=== PATIENT | female | born 1955 | race African-American/Black ===

== ENCOUNTER 2016-02-16 01:34 | Emergency (ER) | payer OTHER ==
[~2016-02-16 01:34] MED LIST: AMLO10TA2 PO; GLIM4TAB2 PO; SIMV20TA6 PO; [UNRECOGNIZED DRUG - REMARK]
== END 2016-02-16 03:06 | disposition left against medical advice (07) ==
LOC: ER 01:36
DX: Z53.21 Procedure and treatment not carried out due to patient leaving prior to being seen by health care provider (principal)

== ENCOUNTER 2016-02-16 12:45 | Emergency (ER) | payer OTHER ==
[~2016-02-16] VITALS: Ht 182.9 cm; Wt 81.6 kg
[2016-02-16 12:57] VITALS: BP 152/100
== END 2016-02-16 13:26 | disposition home or self-care (01) ==
LOC: ER 12:50
DX: G47.00 Insomnia, unspecified (principal); L30.9 Dermatitis, unspecified; I10 Essential (primary) hypertension; E11.9 Type 2 diabetes mellitus without complications; Z98.890 Other specified postprocedural states
CPT/HCPCS: 99283; A4606; Z7610

== ENCOUNTER 2016-02-25 21:32 | Emergency (ER) | payer OTHER ==
[~2016-02-25] VITALS: Ht 175.3 cm; Wt 75.7 kg
[2016-02-25 23:14] VITALS: BP 138/89
== END 2016-02-25 22:45 | disposition home or self-care (01) ==
LOC: ER 21:38
DX: S09.90XA Unspecified injury of head, initial encounter (principal); R51 Headache; M54.5 Low back pain; I10 Essential (primary) hypertension; E11.9 Type 2 diabetes mellitus without complications; Z98.890 Other specified postprocedural states; V49.40XA Driver injured in collision with unspecified motor vehicles in traffic accident, initial encounter; Y93.89 Activity, other specified; Y92.413 State road as the place of occurrence of the external cause; Y99.8 Other external cause status
CPT/HCPCS: 70450-TC; 72100-TC; A4606; Z7610

== ENCOUNTER 2016-04-01 19:23 | Emergency (ER) | payer OTHER, BC ==
[~2016-04-01] VITALS: Ht 175.3 cm; Wt 77.1 kg
[2016-04-01] MEDS ORDERED: METOCLOPRAMIDE HCL 10 MG/10 ML UDC PO ONE (20:00)
[2016-04-01] MEDS ORDERED: ACETAMINOPHEN ES 500 MG TABLET PO ONE (20:00)
[2016-04-01] MEDS ORDERED: KETOROLAC TROMETHAMINE INJ 60 MG/2 ML VIAL IM ONE (20:00)
[2016-04-01] MEDS ORDERED: METOCLOPRAMIDE HCL 10 MG TABLET ONE (20:24)
[2016-04-01] MEDS ORDERED: ACETAMINOPHEN ES 500 MG TABLET ONE (20:24)
[2016-04-01] MEDS ORDERED: KETOROLAC TROMETHAMINE INJ 30 MG/ML VIAL ONE (20:25)
[2016-04-01 20:58] VITALS: BP 156/64
== END 2016-04-01 20:58 | disposition home or self-care (01) ==
LOC: ER 19:28
DX: R51 Headache (principal); I10 Essential (primary) hypertension
CPT/HCPCS: A4606; J1885; J8597; Z7610

== ENCOUNTER 2016-09-03 21:52 | Emergency (ER) | payer BC, OTHER ==
[~2016-09-03] VITALS: Ht 175.3 cm; Wt 76.2 kg
--- NOTE | 2016-09-03 22:05 | NUR ---
TO BED 2 AMBULATORY C/O ABDOMINAL PAIN X1 WEEK WITH DIARRHEA, WORSE AFTER EATING. PT AAOX4 NO ACUTE DISTRESS NOTED, RESP EVEN AND UNLABORED. PENDING ER MD HACKETT.
--- NOTE | 2016-09-03 22:10 | NUR ---
URINE SAMPLE COLLECTED AND SENT TO LAB.
[2016-09-03] MEDS ORDERED: IV NS 0.9% 1,000 ML BAG IV ONE (22:30)
[2016-09-03 22:40] LABS: BASOPHILS % (AUTO) 0.2 % (0.0-2.0); EOSINOPHILS % (AUTO) 0.4 % (0.0-6.0); HEMATOCRIT 37 % (33-45); HEMOGLOBIN 12.5 g/dL (11.5-14.8); LYMPHOCYTES # (AUTO) 1.8 /CMM (0.8-4.8); LYMPHOCYTES % (AUTO) 24.5 % (20.0-44.0); MEAN CORPUSCULAR HEMOGLOBIN 29 PG (26.0-33.0); MEAN CORPUSCULAR HGB CONC 34 g/dl (31.0-36.0); MEAN CORPUSCULAR VOLUME 85 fL (82-100); MONOCYTES # (AUTO) 0.4 /CMM (0.1-1.30); NEUTROPHILS # (AUTO) 5.1 /CMM (1.8-8.9); NEUTROPHILS % (AUTO) 68.9 % (43.0-81.0); PLATELET COUNT (AUTO) 255 /CMM (150-450); RDW COEFFICIENT OF VARIATION 14.4 (11.5-15.0); RED BLOOD CELL COUNT(AUTO) 4.36 MIL/uL (4.0-5.2); WHITE BLOOD COUNT (AUTO) 7.4 K/uL (4.3-11.0)
[2016-09-03 22:49] LABS: CALCIUM, SERUM 8.5 mg/dL (8.5-10.1); CARBON DIOXIDE 27 mmol/L (21-32); CHLORIDE 106 mmol/L (98-107); CREATININE 1.2 mg/dL (0.6-1.3); GLUCOSE 254 mg/dL (74-106); POTASSIUM 3.3 mmol/L (3.5-5.1); SODIUM SERUM 144 mmol/L (136-145); UREA NITROGEN, BLOOD 17 mg/dL (7-18)
[2016-09-03 22:51] LABS: INR 0.97 (0.87-1.13); PROTHROMBIN TIME 10.4 SECS (9.5-12.7)
[2016-09-03 22:53] LABS: APPEARANCE,URINE SL CLOUDY (CLEAR); BILIRUBIN,URINE NEGATIVE (NEGATIVE); BLOOD, URINE TRACE-INTA Ery/uL (NEGATIVE); COLOR,URINE YELLOW (YELLOW); KETONES,URINE NEGATIVE (NEGATIVE); LEUKOCYTE ESTERASE ,URINE 1+ (NEGATIVE); NITRITE, URINE NEGATIVE (NEGATIVE); PH,URINE 5.5 (5.0-8.0); PROTEIN,URINE TRACE mg/dl (NEGATIVE); UGLUCOSE 1+ mg/dL (NEGATIVE); UROBILINOGEN,URINE 0.2 EU/dL (0.2)
--- NOTE | 2016-09-03 22:56 | NUR ---
PT BACK FROM RADIOLOGY. PENDING CT ABD/PELVIS RESULT.
[2016-09-03 22:57] LABS: ALANINE AMINOTRANSFERASE 42 U/L (12-78); ALBUMIN 3.8 g/dL (3.4-5.0); ALKALINE PHOSPHATASE 73 U/L (46-116); ASPARTATE AMINOTRANSFERASE 22 U/L (15-37); BILIRUBIN,DIRECT 0.1 mg/dL (0.0-0.2); BILIRUBIN,TOTAL 0.3 mg/dL (0.2-1.0); LIPASE 210 U/L (73-393); TOTAL PROTEIN, SERUM 7.4 g/dL (6.4-8.2); TROPONIN I < 0.017 ng/mL (0.00-0.056)
[2016-09-03 23:02] LABS: BACTERIA,URINE 1+ /HPF (None Seen); RBC,URINE 0-2 /HPF (0-2); SQUAMOUS EPITHELIAL CELL,UR Moderate /HPF (None Seen); WBC,URINE 20-25 /HPF (0-3)
--- NOTE | 2016-09-03 23:33 | NUR ---
CT RESULT RECEIVED. ER AWARE.
--- NOTE | 2016-09-04 00:15 | NUR ---
UTS TECH AT BEDSIDE.
--- NOTE | 2016-09-04 00:49 | NUR ---
PT AMBULATROY TO THE BATHROOM WITH STEADY GAIT NOTED. PT DENIES PAIN OR DISCOMFORT AT THIS TIME.
--- NOTE | 2016-09-04 01:49 | NUR ---
IV removed. Catheter intact and site benign. Pressure and 4x4 applied to site. No bleeding noted. Patient discharged to home in stable condition. Written and verbal after care instructions given. Patient verbalizes understanding of instruction. ambulatory with a steady gait noted. pt aaox4 no acute distress noted, resp even and unlabored.
[2016-09-04 01:50] VITALS: BP 143/84
== END 2016-09-04 01:50 | disposition home or self-care (01) ==
LOC: ER 21:54
DX: N39.0 Urinary tract infection, site not specified (principal); E11.9 Type 2 diabetes mellitus without complications; R19.7 Diarrhea, unspecified; I10 Essential (primary) hypertension
CPT/HCPCS: 36415; 72128-TC; 76856-TC; 80048-TC; 80076-TC; 81000-TC; 83690-TC; 84484-TC; 85025-TC; 85730-TC; 87086-TC; A4606; J7030; Z7610

== ENCOUNTER 2017-08-09 22:59 | Emergency (ER) | payer OTHER ==
[~2017-08-09] VITALS: Ht 175.3 cm; Wt 76.2 kg
[2017-08-09 23:10] VITALS: BP 157/77
== END 2017-08-10 01:20 | disposition home or self-care (01) ==
LOC: ER 23:05
DX: R59.1 Generalized enlarged lymph nodes (principal); J40 Bronchitis, not specified as acute or chronic; E11.65 Type 2 diabetes mellitus with hyperglycemia; I10 Essential (primary) hypertension
CPT/HCPCS: 71045-TC; 82962-TC; A4606; Z7610

== ENCOUNTER 2017-09-13 14:20 | Emergency (ER) | payer OTHER ==
[~2017-09-13] VITALS: Ht 175.3 cm; Wt 76.2 kg
[2017-09-13 15:30] LABS: BASOPHILS # (AUTO) 0.1 /CMM (0.0-0.2); BASOPHILS % (AUTO) 1.1 % (0.0-2.0); EOSINOPHILS % (AUTO) 1.3 % (0.0-6.0); HEMATOCRIT 41 % (33-45); HEMOGLOBIN 13.4 g/dL (11.5-14.8); LYMPHOCYTES # (AUTO) 2.2 /CMM (0.8-4.8); MEAN CORPUSCULAR HEMOGLOBIN 29 PG (26.0-33.0); MEAN CORPUSCULAR HGB CONC 33 g/dl (31.0-36.0); MEAN CORPUSCULAR VOLUME 87 fL (82-100); MONOCYTES # (AUTO) 0.4 /CMM (0.1-1.30); MONOCYTES % (AUTO) 6.3 % (2.0-12.0); NEUTROPHILS # (AUTO) 2.8 /CMM (1.8-8.9); NEUTROPHILS % (AUTO) 52.3 % (43.0-81.0); PLATELET COUNT (AUTO) 287 /CMM (150-450); RDW COEFFICIENT OF VARIATION 12.7 (11.5-15.0); RED BLOOD CELL COUNT(AUTO) 4.67 MIL/uL (4.0-5.2); WHITE BLOOD COUNT (AUTO) 5.6 K/uL (4.3-11.0)
[2017-09-13 15:37] LABS: CALCIUM, SERUM 9.1 mg/dL (8.5-10.1); CREATININE 1.1 mg/dL (0.6-1.3); POTASSIUM 3.6 mmol/L (3.5-5.1)
--- NOTE | 2017-09-13 15:40 | NUR ---
RECIEVED PT TO ED BED 10, A/OX4 W/ C/O ABD PAIN X 1 MONTH, WORSENING WITH EATING. +DIARRHEA. NAD VSS RR EVEN AND UNLABORED. PT WAS SEEN AND EVALUATED BY ER MD
[2017-09-13 15:43] LABS: ALBUMIN 3.7 g/dL (3.4-5.0); BILIRUBIN,DIRECT 0.1 mg/dL (0.0-0.2); BILIRUBIN,TOTAL 0.4 mg/dL (0.2-1.0); TOTAL PROTEIN, SERUM 7.7 g/dL (6.4-8.2)
[2017-09-13 16:36] LABS: APPEARANCE,URINE Clear (CLEAR); BILIRUBIN,URINE Negative (NEGATIVE); BLOOD, URINE Negative Ery/uL (NEGATIVE); COLOR,URINE Yellow (YELLOW); KETONES,URINE Negative (NEGATIVE); LEUKOCYTE ESTERASE ,URINE Negative (NEGATIVE); NITRITE, URINE Negative (NEGATIVE); PH,URINE 5.5 (5.0-8.0); PROTEIN,URINE Negative (NEGATIVE); UGLUCOSE Negative (NEGATIVE); UROBILINOGEN,URINE 0.2 EU/dL (0.2)
[2017-09-13 17:05] VITALS: BP 135/89
== END 2017-09-13 17:27 | disposition home or self-care (01) ==
LOC: ER 14:22
DX: R10.11 Right upper quadrant pain (principal); E78.5 Hyperlipidemia, unspecified; R59.1 Generalized enlarged lymph nodes; I10 Essential (primary) hypertension; E11.9 Type 2 diabetes mellitus without complications
CPT/HCPCS: 36415; 76705; 80048; 80076; 81001; 83690; 85025; 99285; A4606; Z7610; 81000-TC

== ENCOUNTER 2021-03-11 11:17 | Inpatient (IN) | payer OTHER ==
[~2021-03-11] VITALS: Ht 175.3 cm; Wt 72.6 kg
[~2021-03-11 11:17] MED LIST changes: +AMLO-213 PO; -AMLO10TA2 PO; -GLIM4TAB2 PO; +GLIM4TAB37 PO; +SIMV-46 PO; -SIMV20TA6 PO
--- NOTE | 2021-03-11 11:39 | NUR ---
HARDEEP AGUIRRE FROM MEDICAL OFFICE C/O CP X 2 DAYS AND HTN, DIZZINESS, HEADACHE, BLURRED VISION, N/V. BP 221/120 AT URGENT CARE. BREAHTING IS REGULAR AND UNLABORED. WARM BLANKET PROVIDED FOR COMFORT. AWAITING MD HACKETT
--- NOTE | 2021-03-11 11:43 | NUR ---
IV ESTABLISHED R AC 20G LABS WERE DRAWN AND COLLECTED
--- NOTE | 2021-03-11 11:48 | NUR ---
VERBAL ORDER FROM DR HILARIO FOR ZOFRAN IV 4 MG/2ML
[2021-03-11] MEDS ORDERED: ONDANSETRON HCL/PF 4 MG/2 ML VIAL ONE (11:53)
[2021-03-11] MEDS ORDERED: LABETALOL HCL IV 100MG VIAL ONE (11:59)
[2021-03-11] MEDS ORDERED: LABETALOL HCL IV 100MG VIAL IV ONE (12:00)
[2021-03-11 12:08] LABS: BASOPHILS # (AUTO) 0.1 K/uL (0.0-0.2); BASOPHILS % (AUTO) 1.1 % (0.0-2.0); HEMATOCRIT 42 % (33-45); HEMOGLOBIN 14.2 g/dL (11.5-14.8); LYMPHOCYTES % (AUTO) 31.5 % (20.0-44.0); MEAN CORPUSCULAR HGB CONC 33 g/dl (31.0-36.0); MEAN CORPUSCULAR VOLUME 87 fL (82-100); MONOCYTES # (AUTO) 0.4 K/uL (0.1-1.30); MONOCYTES % (AUTO) 6.8 % (2.0-12.0); NEUTROPHILS # (AUTO) 3.8 K/uL (1.8-8.9); NEUTROPHILS % (AUTO) 59.6 % (43.0-81.0); PLATELET COUNT (AUTO) 262 K/uL (150-450); RED BLOOD CELL COUNT(AUTO) 4.88 MIL/uL (4.0-5.2); WHITE BLOOD COUNT (AUTO) 6.3 K/uL (4.3-11.0)
[2021-03-11 12:25] LABS: CALCIUM, SERUM 9.8 mg/dL (8.5-10.1); CARBON DIOXIDE 27 mmol/L (21-32); CHLORIDE 102 mmol/L (98-107); CREATININE 1.1 mg/dL (0.6-1.3); GLUCOSE 202 mg/dL (74-106); POTASSIUM 3.6 mmol/L (3.5-5.1); SODIUM SERUM 138 mmol/L (136-145); UREA NITROGEN, BLOOD 16 mg/dL (7-18)
[2021-03-11] MEDS ORDERED: PROCHLORPERAZINE EDISYLATE 10 MG/2 ML VIAL ONE (12:25)
[2021-03-11] MEDS ORDERED: SUMATRIPTAN SUCCINATE 6 MG/0.5 ML VIAL SQ ONE ×2 (12:25→12:30)
[2021-03-11] MEDS ORDERED: PROCHLORPERAZINE EDISYLATE 10 MG/2 ML VIAL IVP ONE (12:30)
[2021-03-11 12:31] LABS: ALKALINE PHOSPHATASE 90 U/L (46-116); ASPARTATE AMINOTRANSFERASE 19 U/L (15-37); BILIRUBIN,DIRECT 0.2 mg/dL (0.0-0.2); BILIRUBIN,TOTAL 0.6 mg/dL (0.2-1.0); TOTAL PROTEIN, SERUM 7.8 g/dL (6.4-8.2)
[2021-03-11 12:54] LABS: ALANINE AMINOTRANSFERASE 27 U/L (12-78); ALBUMIN 3.7 g/dL (3.4-5.0)
--- NOTE | 2021-03-11 13:07 | NUR ---
PT TAKEN TO CT
--- NOTE | 2021-03-11 13:19 | NUR ---
PT RETURNED FROM CT [facility]IA [facility]
[2021-03-11] MEDS ORDERED: ONDANSETRON HCL/PF 4 MG/2 ML VIAL IV ONE (13:30)
[2021-03-11] MEDS ORDERED: MECLIZINE HCL 12.5 MG TABLET PO ONE (14:00)
[2021-03-11] MEDS ORDERED: IV NS 0.9% 1,000 ML IV ONE (14:00)
[2021-03-11] MEDS ORDERED: MECLIZINE HCL 25 MG TABLET ONE (14:16)
[2021-03-11] MEDS ORDERED: ONDANSETRON HCL/PF 4 MG/2 ML VIAL IVP PRN (14:30)
[2021-03-11] MEDS ORDERED: Z GUARD REMEDY 4 OZ OINT TP PRN (14:30)
[2021-03-11] MEDS ORDERED: MAG HYDROX/AL HYDROX/SIMETH 30 ML UDC PO PRN (14:30)
[2021-03-11] MEDS ORDERED: MAGNESIUM HYDROXIDE 30 ML UDC PO PRN (14:30)
[2021-03-11] MEDS ORDERED: ACETAMINOPHEN 325 MG TABLET PO PRN (14:30)
--- NOTE | 2021-03-11 14:41 | NUR ---
TEXTED DR. PANTOJA FOR MRI APPROVAL.
--- NOTE | 2021-03-11 14:43 | NUR ---
RESPONSE FROM DR. PANTOJA. MRI ON HOLD FOR NOW, HE WILL LET US KNOW.
[2021-03-11] MEDS ORDERED: IOHEXOL-350 100 ML VIAL IV ONE (15:38)
[2021-03-11] MEDS ORDERED: IV NS 0.9% 250 ML IV ONE (15:38)
[2021-03-11] MEDS ORDERED: INSU100V42 SQ (16:37)
[2021-03-11] MEDS ORDERED: INSU100I26 SQ (16:37)
[2021-03-11] MEDS ORDERED: LOSA100T31 PO (16:37)
[2021-03-11] MEDS ORDERED: ATEN100T PO (16:37)
--- NOTE | 2021-03-11 17:23 | NUR ---
ultrasound at bedside
[2021-03-11] MEDS ORDERED: SIMVASTATIN 20 MG TABLET ONE (22:14)
[2021-03-11] MEDS: SIMVASTATIN 20 MG TABLET PO SCH (22:26)
--- NOTE | 2021-03-12 00:06 | NUR ---
REPORT GIVEN TO LETY ON THIRD FLOOR
[2021-03-12 00:15] VITALS: BP 172/95
--- NOTE | 2021-03-12 00:34 | NUR ---
transferred to [facility] under ACLS
--- NOTE | 2021-03-12 04:09 | NUR ---
ending notes: alert and orientated x 2m -3 she is legally blind and is [place]. she will follow commads when intiated by the nurse medicated X2 with [place] for pain anf effective Left foot PPP and warm toes cool to touch X marked where the doppler picked up the pulse. movement and sensation present she need assist when needing a drink of h2o Addendum: 03/12/21 at 0413 by LETY QUINTANILLA RN wrong patient
[2021-03-12] MEDS: ATENOLOL 50 MG TABLET PO SCH ×2 (04:52→09:00)
[2021-03-12] MEDS ORDERED: LOSARTAN POTASSIUM 50 MG TABLET PO SCH ×2 (05:00→09:00)
--- NOTE | 2021-03-12 05:04 | NUR ---
Ending notes: alert and orientated X$ DX Hypertension dizziness blurred vision nausea admitted at 0015 from the ER slept until waken for 4AM vital signs BP 181/89 HR 63 Monitor show NSR Domingo Granados called and made aware..new orders to give AM doses Losartan and Atenolol NOW! patient asymptomatic at this time
[2021-03-12 07:10] LABS: THYROID STIMULATING HORMONE 0.515 uIU/mL (0.358-3.74)
[2021-03-12 07:34] LABS: BASOPHILS % (AUTO) 0.5 % (0.0-2.0); EOSINOPHILS % (AUTO) 1.5 % (0.0-6.0); HEMATOCRIT 39 % (33-45); HEMOGLOBIN 13.1 g/dL (11.5-14.8); LYMPHOCYTES # (AUTO) 2.7 K/uL (0.8-4.8); LYMPHOCYTES % (AUTO) 43.7 % (20.0-44.0); MEAN CORPUSCULAR HGB CONC 34 g/dl (31.0-36.0); MEAN CORPUSCULAR VOLUME 86 fL (82-100); MONOCYTES # (AUTO) 0.5 K/uL (0.1-1.30); MONOCYTES % (AUTO) 8.6 % (2.0-12.0); NEUTROPHILS # (AUTO) 2.9 K/uL (1.8-8.9); NEUTROPHILS % (AUTO) 45.7 % (43.0-81.0); PLATELET COUNT (AUTO) 248 K/uL (150-450); RED BLOOD CELL COUNT(AUTO) 4.54 MIL/uL (4.0-5.2); WHITE BLOOD COUNT (AUTO) 6.3 K/uL (4.3-11.0)
[2021-03-12 08:00] VITALS: BP 151/74
--- NOTE | 2021-03-12 08:00 | NUR ---
ms rn received on bed, awake,alert,oriented x4,not in any form of distredss, respirations even and unlabored,no sob noted. denies painat this time ,all needs attended.
[2021-03-12] MEDS ORDERED: AMLODIPINE BESYLATE 10 MG TABLET PO SCH (09:00)
[2021-03-12] MEDS: GLIMEPIRIDE 4 MG TABLET PO SCH ×2 (09:00→19:02)
[2021-03-12] MEDS ORDERED: ATENOLOL 50 MG TABLET PO SCH (09:00)
[2021-03-12 09:19] LABS: CHOLESTEROL 231 mg/dL (<200); HDL CHOLESTEROL 52 mg/dL (40-60); LDL 156 mg/dL (0-99); TRIGLYCERIDES 116 mg/dL (30-150)
--- NOTE | 2021-03-12 09:30 | NUR ---
ms ferris breakfast served,due meds given,tolerated well.
[2021-03-12] MEDS: ASPIRIN 81 MG TAB.CHEW PO SCH (09:33)
[2021-03-12] MEDS: VALSARTAN 80 MG TABLET PO SCH (09:35)
[2021-03-12] MEDS: AMLODIPINE BESYLATE 5 MG TABLET PO SCH (09:36)
[2021-03-12] MEDS: PANTOPRAZOLE 40 MG TABLET.DR PO SCH (09:39)
[2021-03-12] MEDS ORDERED: hydrALAZINE HCL IV 20 MG VIAL IV PRN (10:00)
--- NOTE | 2021-03-12 10:30 | NUR ---
ms rn was eeconnie by susi guevara/ vicky avila and carried out.
[2021-03-12 11:45] VITALS: BP 182/76
[2021-03-12 15:17] LABS: CALCIUM, SERUM 8.8 mg/dL (8.5-10.1); CREATININE 1.2 mg/dL (0.6-1.3); MAGNESIUM 1.9 mg/dL (1.8-2.4); PHOSPHORUS 4.4 mg/dL (2.5-4.9); POTASSIUM 3.6 mmol/L (3.5-5.1)
[2021-03-12 16:00] VITALS: BP 152/82
--- NOTE | 2021-03-12 18:00 | NUR ---
ms rn on bed, no distress,will be seen by donato for psych consult.
--- NOTE | 2021-03-12 19:20 | NUR ---
BLACKTOP PAVER OPERATOR OPENING NOTES: RECEIVED PATIENT IN BED,AWAKE, A/O X4. NO S/S OF DISTRESS NOTED. NO COMPLAIN OF PAIN. CALL LIGHT WITHIN REACH. BED IN LOWEST AND LOCKED POSITION. ON TELE MONITOR SR 89 WITH DEPRESSED T.
[2021-03-12] MEDS ORDERED: DEXTROSE 50%-WATER 50 ML DISP.SYRIN IV PRN (20:30)
[2021-03-12 20:47] VITALS: BP 143/65
[2021-03-12] MEDS: SIMVASTATIN 20 MG TABLET PO SCH (21:20)
[2021-03-12] MEDS: BLOOD SUGAR DIAGNOSTIC 1 EACH STRIP IN SCH (21:25)
[2021-03-12] MEDS: INSULIN REGULAR, HUMAN 100 UNIT/ML 3 ML VIAL SQ PRN (21:30)
[2021-03-13 00:35] VITALS: BP 164/77
[2021-03-13 04:39] VITALS: BP 169/75
[2021-03-13] MEDS: BLOOD SUGAR DIAGNOSTIC 1 EACH STRIP IN SCH ×2 (06:39→11:47)
[2021-03-13] MEDS: INSULIN REGULAR, HUMAN 100 UNIT/ML 3 ML VIAL SQ PRN ×2 (06:41→11:51)
[2021-03-13 06:49] LABS: BASOPHILS % (AUTO) 0.6 % (0.0-2.0); EOSINOPHILS % (AUTO) 2.1 % (0.0-6.0); HEMATOCRIT 39 % (33-45); HEMOGLOBIN 13.3 g/dL (11.5-14.8); LYMPHOCYTES # (AUTO) 2.3 K/uL (0.8-4.8); MEAN CORPUSCULAR HGB CONC 34 g/dl (31.0-36.0); MEAN CORPUSCULAR VOLUME 86 fL (82-100); MONOCYTES # (AUTO) 0.5 K/uL (0.1-1.30); MONOCYTES % (AUTO) 9.4 % (2.0-12.0); NEUTROPHILS # (AUTO) 2.8 K/uL (1.8-8.9); NEUTROPHILS % (AUTO) 48.9 % (43.0-81.0); PLATELET COUNT (AUTO) 244 K/uL (150-450); RED BLOOD CELL COUNT(AUTO) 4.54 MIL/uL (4.0-5.2); WHITE BLOOD COUNT (AUTO) 5.8 K/uL (4.3-11.0)
[2021-03-13 07:11] LABS: MAGNESIUM 1.8 mg/dL (1.8-2.4); PHOSPHORUS 3.6 mg/dL (2.5-4.9); POTASSIUM 3.3 mmol/L (3.5-5.1)
--- NOTE | 2021-03-13 07:28 | NUR ---
SIGNS AND DISPLAYS SALESPERSON OPENING NOTES RECEIVED Pt IN BED ASLEEP. EASILY AROUSABLE. Pt IS A/Ox4. Pt IS ON ROOM AIR AND TOLERATING WELL. NO COMPLAINTS OF PAIN OR SIGNS OF DISTRESS AT THIS TIME. SAFETY MEASURES ARE IN PLACE: BED IS LOCKED AND IN LOWEST POSITION. SIDE RAILS UPx2. CALL LIGHT AND BEDSIDE TABLE ARE WITHIN REACH. WILL CONTINUE TO MONITOR THROUGHOUT THE SHIFT.
[2021-03-13 08:00] VITALS: BP 160/87
[2021-03-13] MEDS: ASPIRIN 81 MG TAB.CHEW PO SCH (08:51)
[2021-03-13] MEDS: GLIMEPIRIDE 4 MG TABLET PO SCH (08:51)
[2021-03-13] MEDS: PANTOPRAZOLE 40 MG TABLET.DR PO SCH (08:51)
[2021-03-13] MEDS: VALSARTAN 80 MG TABLET PO SCH (08:52)
[2021-03-13] MEDS: AMLODIPINE BESYLATE 5 MG TABLET PO SCH (08:53)
[2021-03-13] MEDS: ATENOLOL 50 MG TABLET PO SCH (08:53)
[2021-03-13] MEDS: hydrALAZINE HCL 50 MG TABLET PO SCH ×2 (08:53→13:00)
[2021-03-13] MEDS ORDERED: LORAZEPAM 1 MG TABLET PO PRN (09:00)
[2021-03-13] MEDS ORDERED: ISOSORBIDE DINITRATE (20MG) 20 MG TABLET PO SCH (09:00)
[2021-03-13] MEDS ORDERED: QUETIAPINE FUMARATE 25 MG TABLET PO SCH (09:00)
[2021-03-13] MEDS ORDERED: POTASSIUM CHLORIDE 20 MEQ TAB.PRT.SR PO SCH (10:30)
[2021-03-13] MEDS ORDERED: HYDR-4077 PO (12:03)
[2021-03-13] MEDS ORDERED: ATEN50TA PO (12:03)
[2021-03-13] MEDS ORDERED: AMLO-212 PO (12:03)
[2021-03-13] MEDS ORDERED: ISOS20TA8 PO (12:03)
[2021-03-13] MEDS ORDERED: ASPI-1169 PO (12:03)
[2021-03-13] MEDS ORDERED: HYDR25TA4 PO (12:03)
[2021-03-13] MEDS ORDERED: Quetiapine Fumarate PO (12:03)
--- NOTE | 2021-03-13 13:37 | NUR ---
RN MS NOTES HYDRALAZINE HELD Pt'S BP IS 109/59 AND HR IS 80. WILL CONTINUE TO MONITOR.
[2021-03-13 16:00] VITALS: BP 131/73
--- NOTE | 2021-03-13 16:50 | NUR ---
RN NOTES Pt HAS BEEN DISCHARGED. SHE IS A/Ox4. Pt IS MEDICALLY STABLE. Pt ON ROOM AIR AND TOLERATING WELL. IV ACCESS HAS BEEN REMOVED. NO COMPLAINTS OF PAIN NOR SIGNS OF DISTRESS AT THIS TIME. Pt LEFT VIA PRIVATE CAR. DISCHARGE INSTRUCTIONS HAS BEEN EXPLAINED. ALL NEEDS WERE MET.
[2021-03-14] MEDS ORDERED: HYDROCHLOROTHIAZIDE 25 MG TABLET PO SCH (09:00)
[2021-03-19 07:07] LABS: RENIN, PLASMA 0.221 ng/mL/hr (0.167-5.380)
== END 2021-03-13 17:47 | disposition home or self-care (01) | DRG 468 ==
LOC: ER 11:23 → TRANSITION 17:43 → TELE 23:51 → MED 03-13 10:51
PROVIDERS: ADMIT Registered Nurse; ATTEND Registered Nurse
DX: I70.1 Atherosclerosis of renal artery (principal); F29 Unspecified psychosis not due to a substance or known physiological condition; I16.9 Hypertensive crisis, unspecified; E11.65 Type 2 diabetes mellitus with hyperglycemia; F60.0 Paranoid personality disorder; Z86.73 Personal history of transient ischemic attack (TIA), and cerebral infarction without residual deficits; I10 Essential (primary) hypertension; G43.909 Migraine, unspecified, not intractable, without status migrainosus; Z20.822 Contact with and (suspected) exposure to COVID-19; Z79.4 Long term (current) use of insulin; Z79.84 Long term (current) use of oral hypoglycemic drugs; Z79.899 Other long term (current) drug therapy; N32.81 Overactive bladder; Z82.49 Family history of ischemic heart disease and other diseases of the circulatory system; Z83.3 Family history of diabetes mellitus; Z87.891 Personal history of nicotine dependence; F39 Unspecified mood [affective] disorder; F06.30 Mood disorder due to known physiological condition, unspecified; M48.02 Spinal stenosis, cervical region
CPT/HCPCS: 36415; 70450-TC; 70496-TC; 70498-TC; 71045-TC; 80048-TC; 80061-TC; 80076-TC; 82088; 82962-TC; 83735-TC; 84100-TC; 84244; 84439-TC; 84443-TC; 84484-TC; 85025-TC; 85730-TC; 87081-TC; 93307-TC; 93880-TC; 97116-TC; 97530-TC; G0378; J0360; J0780; J1815; J2405; J3030; J3490; J7030; J7050; J8597; Q9967

== ENCOUNTER 2021-03-23 21:33 | Emergency (ER) | payer OTHER ==
[~2021-03-23] VITALS: Ht 175.3 cm; Wt 76.2 kg
[~2021-03-23 21:33] MED LIST changes: +AMLO-212 PO; -AMLO-213 PO; +ASPI-1169 PO; +ATEN100T PO; +ATEN50TA PO; +HYDR-4077 PO; +HYDR25TA4 PO; +INSU100I26 SQ; +INSU100V42 SQ; +ISOS20TA8 PO; +Quetiapine Fumarate PO; -SIMV-46 PO; -[UNRECOGNIZED DRUG - REMARK]
[2021-03-23 22:23] LABS: BASOPHILS % (AUTO) 0.3 % (0.0-2.0); EOSINOPHILS % (AUTO) 1.7 % (0.0-6.0); HEMATOCRIT 38 % (33-45); HEMOGLOBIN 12.5 g/dL (11.5-14.8); LYMPHOCYTES # (AUTO) 1.6 K/uL (0.8-4.8); LYMPHOCYTES % (AUTO) 19.7 % (20.0-44.0); MEAN CORPUSCULAR HGB CONC 33 g/dl (31.0-36.0); MEAN CORPUSCULAR VOLUME 86 fL (82-100); MONOCYTES # (AUTO) 0.6 K/uL (0.1-1.30); MONOCYTES % (AUTO) 7.2 % (2.0-12.0); NEUTROPHILS # (AUTO) 5.9 K/uL (1.8-8.9); NEUTROPHILS % (AUTO) 71.1 % (43.0-81.0); PLATELET COUNT (AUTO) 251 K/uL (150-450); RED BLOOD CELL COUNT(AUTO) 4.45 MIL/uL (4.0-5.2); WHITE BLOOD COUNT (AUTO) 8.3 K/uL (4.3-11.0)
[2021-03-23 22:30] LABS: BILIRUBIN,URINE NEGATIVE (NEGATIVE); COLOR,URINE YELLOW (YELLOW); LEUKOCYTE ESTERASE ,URINE NEGATIVE (NEGATIVE); NITRITE, URINE NEGATIVE (NEGATIVE); PROTEIN,URINE NEGATIVE (NEGATIVE); UGLUCOSE >=1000 mg/dL (NEGATIVE); UROBILINOGEN,URINE 0.2 EU/dL (0.2)
[2021-03-23] MEDS ORDERED: OLANZAPINE 5 MG TABLET PO ONE (22:30)
[2021-03-23 22:38] LABS: ALANINE AMINOTRANSFERASE 23 U/L (12-78); ALBUMIN 3.8 g/dL (3.4-5.0); ALCOHOL, BLOOD < 3 mg/dL (0-0); ALKALINE PHOSPHATASE 101 U/L (46-116); ASPARTATE AMINOTRANSFERASE 9 U/L (15-37); BILIRUBIN,DIRECT 0.1 mg/dL (0.0-0.2); BILIRUBIN,TOTAL 0.3 mg/dL (0.2-1.0); CALCIUM, SERUM 9.6 mg/dL (8.5-10.1); CARBON DIOXIDE 30 mmol/L (21-32); CHLORIDE 98 mmol/L (98-107); CREATININE 1.3 mg/dL (0.6-1.3); POTASSIUM 3.7 mmol/L (3.5-5.1); SODIUM SERUM 138 mmol/L (136-145); TOTAL PROTEIN, SERUM 7.8 g/dL (6.4-8.2); UREA NITROGEN, BLOOD 24 mg/dL (7-18)
[2021-03-23 22:45] LABS: ACETAMINOPHEN < 2 ug/ml (10-30)
[2021-03-23 22:46] LABS: GLUCOSE 421 mg/dL (74-106)
[2021-03-23] MEDS ORDERED: OLANZAPINE 5 MG TABLET ONE (22:57)
[2021-03-23] MEDS ORDERED: INSULIN REGULAR, HUMAN 100 UNIT/ML 10 ML VIAL ONE (23:25)
[2021-03-23] MEDS ORDERED: POTASSIUM CHLORIDE 20 MEQ TAB.PRT.SR PO ONE ×2 (23:25→23:30)
[2021-03-23] MEDS ORDERED: INSULIN REGULAR, HUMAN 100 UNIT/ML 10 ML VIAL SQ ONE (23:30)
[2021-03-24] MEDS ORDERED: QUETIAPINE FUMARATE 25 MG TABLET PO STA ×2 (02:25→19:17)
[2021-03-24] MEDS ORDERED: QUETIAPINE FUMARATE 25 MG TABLET ONE ×2 (02:28→19:53)
[2021-03-24] MEDS ORDERED: LORAZEPAM 1 MG TABLET PO ONE (19:30)
[2021-03-24] MEDS ORDERED: LORAZEPAM 1 MG TABLET ONE (19:53)
[2021-03-25] MEDS ORDERED: LORAZEPAM 1 MG TABLET PO PRN (12:00)
[2021-03-25] MEDS ORDERED: QUETIAPINE FUMARATE 25 MG TABLET ONE (12:00)
[2021-03-25] MEDS: QUETIAPINE FUMARATE 25 MG TABLET PO SCH ×2 (12:03→21:00)
[2021-03-25] MEDS ORDERED: QUET25TA PO (20:49)
[2021-03-25 21:04] VITALS: BP 136/70
== END 2021-03-25 21:08 | disposition home or self-care (01) ==
LOC: ER 21:35
DX: F29 Unspecified psychosis not due to a substance or known physiological condition (principal); F41.9 Anxiety disorder, unspecified; Z20.822 Contact with and (suspected) exposure to COVID-19; E11.65 Type 2 diabetes mellitus with hyperglycemia; Z79.4 Long term (current) use of insulin; Z53.29 Procedure and treatment not carried out because of patient's decision for other reasons
CPT/HCPCS: 36415; 80048; 80076; 80143; 80307; 80320; 81003; 85025; 87426; 96372; 99285; C9803; J1815; G0480